=== PATIENT | male | born 1985 | race Caucasian/White ===

== ENCOUNTER 2021-08-13 17:58 | Emergency (ER) | payer SELFPAY ==
[~2021-08-13] VITALS: Ht 180.3 cm; Wt 92.3 kg
--- NOTE | 2021-08-13 20:14 | PHYS DOC ---
General Adult EDM: Chief Complaint: SUICDAL IDEATION HPI: HPI: Patient is a 35-year-old male presents to the emergency department concerning needing local resources in [place] for drug rehab and suicidal and homicidal ideations. Patient reports he was at a local rehab center called [facility], was discharged from there and was being chased around by the [place] police, reports he had nowhere else to go and his employer picked him up and brought him to the [place] area. 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 States she is a cigarette smoker, will drink alcohol if available. Patient denies other physical complaints or physical concerns. Review of Systems: Review of Systems: 14 body systems of review of systems have been reviewed. See HPI for pertinent positives and negative responses, otherwise all other systems are negative, nonpertinent or noncontributory. Constitutional: Negative except as outlined in HPI above. Skin: Negative except as outlined in HPI above. Eyes: Negative except as outlined in HPI above. HENT: Negative except as outlined in HPI above. Respiratory: Negative except as outlined in HPI above. Cardiovascular: Negative except as outlined in HPI above. GI: Negative except as outlined in HPI above. : Negative except as outlined in HPI above. Musculoskeletal: Negative except as outlined in HPI above. Integument: Negative except as outlined in HPI above. Neurologic: Negative except as outlined in HPI above. Endocrine: Negative except as outlined in HPI above. Lymphatic: Negative except as outlined in HPI above. Psychiatric: Negative except as outlined in HPI above. Heart Score: C/O Chest Pain: No Risk Factors: Risk Factors: DM, Current or recent (<one month) smoker, HTN, HLP, family history of CAD, obesity. Risk Scores: Score 0 - 3: 2.5% MACE over next 6 weeks - Discharge Home Score 4 - 6: 20.3% MACE over next 6 weeks - Admit for Clinical Observation Score 7 - 10: 72.7% MACE over next 6 weeks - Early Invasive Strategies Physical Exam: PE: Constitutional: Well developed, well nourished, no acute distress, non-toxic appearance. 35-year-old male in no apparent distress. HENT: Normocephalic, atraumatic. Eyes: Conjunctiva normal, no discharge. Neck: Normal range of motion, no stridor. Cardiovascular: No cyanosis appreciated, distal cap refill less than 2 seconds. Lungs & Thorax: Patient is in no respiratory distress, no audible adventitious lung sounds appreciated. Abdomen: Nontender, no abnormalities noted. Skin: Warm, dry, no erythema, no rash. Back: No tenderness, no deformities. Extremities: No tenderness, no cyanosis, no clubbing, ROM intact, no edema. Neurologic: Alert and oriented X 3, normal motor function, normal sensory function, no focal deficits noted. Psychologic: Affect anxious, judgement abnormal, mood calm. EKG: EKG: [] Radiology/Procedures: Radiology/Procedures: [] Course & Med Decision Making: Course & Med Decision Making Pertinent Labs and Imaging studies reviewed. (See chart for details) 35-year-old male, vital signs reviewed, presents emergency department concerning wanting resources to follow-up with for drug rehabilitation, patient reports he is homeless, patient states he had to say he was homicidal and suicidal so he can get some attention. Patient reports he is not homicidal or suicidal and has no interest in inpatient services, patient dates he is seeking local resources on the [facility] for ongoing mental health and drug rehab. Physical examination is unremarkable, patient has a disheveled appearance as if he is homeless, I do not feel the patient is suicidal or homicidal, it is cold outside this evening and patient is seeking appropriate resources in the emergency department. Discussed with patient will consult [facility] [employer] for mental health and drug rehab resources in the area. Patient is amendable to this planning. Related to patient's complaint to nursing of homicidal and suicidal ideations, security entered room to search and remove any weapons on the person, patient became upset and very offended, wishes to leave the emergency department at this time. I discussed leaving the department AGAINST MEDICAL ADVICE, the patient states he does not like to have his weapons removed from his person, discussed the patient with length that all belongings would be returned to him upon discharge to the hospital, patient states he wishes to leave immediately. Patient continues to deny homicidal and suicidal ideations, is seeking area local resources for drug rehab and mental health. Patient given number for [facility]SI, patient has left the emergency department AGAINST MEDICAL ADVICE. Patient has left ED prior to receiving discharge instructions Alexia Disclaimer: Dragon Disclaimer: This electronic medical record was generated, in whole or in part, using a voice recognition dictation system. Departure Departure Impression: Primary Impression: Left against medical advice Disposition: 07 LEFT AGAINST MEDICAL ADVICE Condition: STABLE Referrals: NO PCP (PCP) YNAELI BERMAN APRN Aug 13, 2021 20:14
[2021-08-13 23:44] VITALS: BP 142/82
== END 2021-08-13 20:07 | disposition left against medical advice (07) ==
LOC: ER 17:58
DX: R45.851 Suicidal ideations (principal)
CPT/HCPCS: 99285-25

== ENCOUNTER 2021-08-20 22:51 | Emergency (ER) | payer SELFPAY ==
[~2021-08-20] VITALS: Ht 182.9 cm; Wt 93.1 kg
[2021-08-21 01:30] VITALS: BP 135/87
--- NOTE | 2021-08-21 01:47 | PHYS DOC ---
Past Medical History Past Surgical History: Tonsillectomy Smoking Status: Current Every Day Smoker Alcohol Use: Heavy General Adult EDM: Chief Complaint: FOOT INJURY PAIN HPI: HPI: Patient is a 35-year-old male who initially presented via EMS for alcohol abuse but subsequently left ER department prior to being checked and for evaluation. Patient sat in the waiting room lobby and spent several hours outside before returning and checking in for evaluation. Reports he is homeless and has blisters on both of his feet for which she would like to be evaluated for. Denies any other complaints, no SI or HI. Admits to drinking earlier this evening prior to arrival Review of Systems: Review of Systems: Fourteen body systems of review of systems have been reviewed. See HPI for pertinent positives and negative responses, other [place] all other systems are negative, non-pertinent or non-contributory Heart Score: C/O Chest Pain: No Risk Factors: Risk Factors: DM, Current or recent (<one month) smoker, HTN, HLP, family history of CAD, obesity. Risk Scores: Score 0 - 3: 2.5% MACE over next 6 weeks - Discharge Home Score 4 - 6: 20.3% MACE over next 6 weeks - Admit for Clinical Observation Score 7 - 10: 72.7% MACE over next 6 weeks - Early Invasive Strategies Physical Exam: PE: Constitutional: Looks older than stated age, disheveled, poor overall hygiene but in no acute distress and sleeping on arrival HENT: Normocephalic, atraumatic, bilateral external ears normal, oropharynx moist, no oral exudates, nose normal. Eyes: PERRLA, EOMI, conjunctiva normal, no discharge. Neck: Normal range of motion, no tenderness, supple, no stridor. Cardiovascular: Heart rate regular per monitor Lungs & Thorax: No respiratory distress or accessory muscle use, bilateral chest rise Abdomen: Abdomen soft, non-tender, bowel sounds present in all quadrants, no guarding or rebound, nonacute abdomen. Skin: Warm, dry, no erythema, no rash. Patient does have a verruca wart present to right fourth digit of the foot. Feet are wet and there is a resolving blister present to the balls of left feet that is resolving in nature and not fluid-filled Back: No tenderness, no CVA tenderness. Extremities: No tenderness, no cyanosis, no clubbing, ROM intact, no edema. 2+ DP and TP pulses of bilateral lower extremities Neurologic: Alert and oriented X 3, normal motor & sensory function present to bilateral lower extremities, no focal deficits noted. Psychologic: Affect normal, judgement normal, mood normal. EKG: EKG: [] Radiology/Procedures: Radiology/Procedures: [] Course & Med Decision Making: Course & Med Decision Making ABCs unremarkable HPI physical exam and comprehensive ER work-up nonconcerning for any emergent or surgical issues Patient has poor overall hygiene secondary to homeless state. His feet are wet from wearing wet socks and so he was provided new socks in ER I disclosed there is no indication for any further diagnostic work-up in ER for his chronic bilateral feet issues that are a result of wearing wet socks. No indication for blood or imaging or other tests at present Strict return precautions were discussed, resources given on how to access affo able care in local area, all questions and concerns addressed prior to ER departure. Dragon Disclaimer: Dragon Disclaimer: This electronic medical record was generated, in whole or in part, using a voice recognition dictation system. Departure Departure Impression: Primary Impression: At risk for foot problem Disposition: 01 HOME / SELF CARE / HOMELESS Condition: STABLE Referrals: NO PCP (PCP) Additional Instructions: As discussed prior to ER departure, your vitals and comprehensive physical exam were nonconcerning for any emergent or surgical issues. I disclose little indication for further diagnostic work-up needed in ER setting. Your feet were wet likely a result of wearing wet socks and so, new socks were provided to you. I discussed need for alcohol cessation while in ER today. I also discussed need and importance of establishing care with a local primary care physician in order for continuity of care in outpatient setting. Please identify primary care provider of your liking and contact them first thing in the morning to establish care and follow-up on ER visit today. If any concerning signs or symptoms present prior to outpatient follow-up please do not hesitate to come back for repeat evaluation. He was a pleasure to take care of you and I wish you the best going forward EBONY WOODS DO Aug 21, 2021 01:47
== END 2021-08-21 02:33 | disposition home or self-care (01) ==
LOC: ER 22:51
DX: M79.671 Pain in right foot (principal); F17.200 Nicotine dependence, unspecified, uncomplicated; F10.20 Alcohol dependence, uncomplicated; Y90.9 Presence of alcohol in blood, level not specified
CPT/HCPCS: 99283